=== PATIENT | male | born 1995 | race African-American/Black ===

== ENCOUNTER 2023-11-03 01:15 | Emergency (ER) | payer SELFPAY ==
[~2023-11-03] VITALS: Ht 182.9 cm; Wt 60.0 kg
[2023-11-03 01:18] VITALS: O2SAT 99
[2023-11-03] MEDS ORDERED: MORPHINE SULFATE 4 MG/ML CPJ (NOT FOR IM USE) IV STA (01:44)
[2023-11-03] MEDS ORDERED: ONDANSETRON HCL 4MG/2ML INJ IV STA (01:44)
[2023-11-03 01:58] VITALS: BP 151/71; PULSE 80; RESP 18; TEMP 98.3
== END 2023-11-03 05:10 | disposition home or self-care (01) ==
LOC: ER 01:15
DX: S09.90XA Unspecified injury of head, initial encounter (principal); F07.81 Postconcussional syndrome; W18.39XA Other fall on same level, initial encounter; Y93.89 Activity, other specified; Y92.89 Other specified places as the place of occurrence of the external cause; Y99.8 Other external cause status
CPT/HCPCS: 99285; 70450; 96374; 96375; 72125; J2405; J2270

== ENCOUNTER 2024-01-05 14:44 | Emergency (ER) | payer MEDICAID ==
[~2024-01-05] VITALS: Ht 180.3 cm; Wt 74.0 kg
[2024-01-05 15:27] VITALS: BP 123/67; PULSE 79; RESP 16; O2SAT 100
[2024-01-05] MEDS ORDERED: QUET100T MT (19:29)
[2024-01-05] MEDS ORDERED: QUET200T MT (19:29)
[2024-01-05] MEDS ORDERED: IBUP-2028 MT (19:30)
== END 2024-01-05 19:44 | disposition home or self-care (01) ==
LOC: ER 14:44
DX: K40.90 Unilateral inguinal hernia, without obstruction or gangrene, not specified as recurrent (principal); Z88.6 Allergy status to analgesic agent; Z76.0 Encounter for issue of repeat prescription
CPT/HCPCS: 76857; 99284

== ENCOUNTER 2024-01-10 11:41 | Emergency (ER) | payer MEDICAID ==
[~2024-01-10] VITALS: Ht 180.3 cm; Wt 75.7 kg
[~2024-01-10 11:41] MED LIST: IBUP-2028 MT; QUET100T MT; QUET200T MT
[2024-01-10 11:50] VITALS: BP 143/86; RESP 16; TEMP 98.4; O2SAT 100
[2024-01-10 12:08] VITALS: PULSE 85
== END 2024-01-10 16:17 | disposition left against medical advice (07) ==
LOC: ER 12:05
DX: M79.671 Pain in right foot (principal); Z53.21 Procedure and treatment not carried out due to patient leaving prior to being seen by health care provider
CPT/HCPCS: 99281